=== PATIENT | male | born 1930 | race Caucasian/White ===

== ENCOUNTER 2016-12-17 08:28 | Emergency (ER) | payer MEDICARE, OTHER ==
[~2016-12-17 08:28] MED LIST: AGGRENOX1 CAP PO; ALLOPURINOL PO; ALLOPURINOL300 MG PO; ASPIR 8181 MG PO; ASPIRIN81 MG PO; Aggrenox; Allopurinol; CALCIUM600 MG PO; COLACE100 MG PO; CRANBERRY500 M PO; DECADRON; LIDODERM30 EA TP; LOVASTATIN10 M1; MELATONIN PO; METOPROLOL SUCC25 MG PO; Metoprolol Succinate; NEURONTIN100 MG PO; NORCO 10-325 T1 EACH PO; NORCO 5/325 TAB1 TAB PO; NORCO 5/3251 TA1 PO; NORCO 5/3251 TAB PO; NORVASC10 M2; OMEGA 3 FISH1 CAP.EC PO; Omega-3; Omeprazole; PANTOPRAZOLE SO40 MG PO; PRESERVISION SO1 CAP PO; PRILOSEC20 MG PO; PRINIVIL10 M1; PYRIDIUM200 MG PO; SERAX10 MG PO; TRAMADOL HCL50 MG PO; TRAZODONE50 MG PO; VICODIN 5/500 T1 TAB PO; [UNRECOGNIZED DRUG - OTHER] PO
== END 2016-12-17 09:47 ==
LOC: EDMED 08:28
DX: S76.011A Strain of muscle, fascia and tendon of right hip, initial encounter (principal); I25.10 Atherosclerotic heart disease of native coronary artery without angina pectoris; M10.9 Gout, unspecified; Z86.73 Personal history of transient ischemic attack (TIA), and cerebral infarction without residual deficits; Z85.46 Personal history of malignant neoplasm of prostate; Z95.5 Presence of coronary angioplasty implant and graft; Z95.1 Presence of aortocoronary bypass graft; Z90.89 Acquired absence of other organs; Z98.890 Other specified postprocedural states; Z79.899 Other long term (current) drug therapy; W19.XXXA Unspecified fall, initial encounter; Y92.019 Unspecified place in single-family (private) house as the place of occurrence of the external cause